=== PATIENT | female | born 1955 | race Caucasian/White ===

== ENCOUNTER 2025-11-02 20:57 | Emergency (ER) | payer MEDICARE, OTHER ==
[~2025-11-02] VITALS: Ht 154.9 cm; Wt 77.1 kg
[~2025-11-02 20:57] MED LIST: ATARAX,VISTARIL50 MG PO; BENZONATATE100 M1 PO; DILTIAZEM CD240 MG PO; ELIQUIS5 M1 PO; IPRATROPIU0.2 MG/1 M NEB; Ipratropium Brom3 ML INH; LOPRESSOR25 MG PO; PREDNISONE10 MG PO; ZITHROMAX TRI-500 M1 PO
[2025-11-02] MEDS ORDERED: Albuterol Sulf/Ipratropium 3 ML VIAL NEB ONE (21:25)
[2025-11-02 21:36] LABS: BASO # 0.0 10*3/uL (0.0-0.1); BASO % 0.1 % (0.0-1.0); EOS # 0.0 10*3/uL (0.0-0.4); EOS % 0.1 % (1.0-4.0); MEAN CELL VOLUME 88.8 fl (81.0-99.0); MEAN CORPUSCULAR HGB 26.9 pg (27.0-31.0); MEAN PLATELET VOLUME 9.3 fl (9.6-12.3); MONO # 0.8 10*3/uL (0.1-1.0); MONO % 8.3 % (3.0-9.0); NEUT # 8.1 10*3/uL (2.3-7.9); NEUT % 82.3 % (47.0-73.0); NUCLEATED RED BLOOD CELL 0.0 % (0.0-0.0); NUCLEATED RED BLOOD CELL 0.0 10*3/uL (0.0-0.0); PLATELET COUNT AUTOMATED 259 10*3/uL (130-400); RED CELL DISTRI WIDTH 17.8 % (0-14.5)
[2025-11-02 22:00] LABS: BUN 20 mg/dl (9-23)
[2025-11-02] MEDS ORDERED: AIRSUPRA 90-810.7 GM INH (22:45)
[2025-11-02] MEDS ORDERED: WELLBUTRIN SR150 MG PO (22:46)
[2025-11-02] MEDS ORDERED: DULCOLAX STOOL100 M1 PO (22:47)
[2025-11-02] MEDS ORDERED: *Pletal50 MG PO (22:47)
[2025-11-02] MEDS ORDERED: CILOSTAZOL100 MG PO (22:47)
[2025-11-02] MEDS ORDERED: DUPIXENT P300 MG/2 M SQ (22:48)
[2025-11-02] MEDS ORDERED: GUAIFEN-CODEIN118 ML PO (23:07)
[2025-11-02] MEDS ORDERED: HYDROXYZINE HYD50 MG PO (23:08)
[2025-11-02] MEDS ORDERED: MEPRON750 MG/51 PO (23:09)
[2025-11-02] MEDS ORDERED: NUCALA100 MG/1 M SQ (23:10)
[2025-11-02] MEDS ORDERED: METHYLPREDNISOLO4 M2 PO (23:10)
[2025-11-02] MEDS ORDERED: VITAMIN D310 MC3 PO (23:11)
[2025-11-02] MEDS ORDERED: ROSUVASTATIN CA40 MG PO (23:11)
[2025-11-02] MEDS ORDERED: PROTONIX TR40 M1 PO (23:11)
[2025-11-03] LABS: BILIRUBIN Negative (Negative); BLOOD Negative (Negative); CLARITY Clear (Clear); COLOR Yellow (Yellow); KETONE Trace (Negative); LEUKO ESTERASE Negative (Negative); NITRITE Negative (Negative); PH 6.5 (4.5-8.0); SPECIFIC GRAVITY 1.025 (1.001-1.030); UROBILINOGEN 1.0 E.U./dl (0.0-1.0)
[2025-11-03 00:06] LABS: BACTERIA TRACE; EPITHELIAL CELLS 16-20; HYALINE CAST 0-2; MUCOUS TRACE; RBC 0-2 rbc/hpf (0-2)
[2025-11-03] MEDS ORDERED: HYDROCODONE-AC1 EAC1 PO ×2 (02:30→13:23)
[2025-11-03] MEDS ORDERED: Acetaminophen/Hydrocodone 5 MG/325 MG TABLET PO ONE (02:40)
[2025-11-03] MEDS ORDERED: PREDNISONE20 M1 PO (13:23)
[2025-11-03] MEDS ORDERED: ZITHROMAX250 MG PO (13:23)
[2025-11-03] MEDS ORDERED: METHOCARBAMOL750 M1 PO (13:23)
== END 2025-11-03 02:50 | disposition home or self-care (01) ==
LOC: ED 20:57
PROVIDERS: Emergency Medicine
DX: J44.1 Chronic obstructive pulmonary disease with (acute) exacerbation (principal); R10.9 Unspecified abdominal pain; Z87.891 Personal history of nicotine dependence; Z98.890 Other specified postprocedural states; Z88.2 Allergy status to sulfonamides